=== PATIENT | female | born 1950 | race Caucasian/White ===

== ENCOUNTER 2019-11-08 23:47 | Emergency (ER) | payer OTHER ==
[~2019-11-08] VITALS: Ht 157.5 cm; Wt 66.2 kg
[2019-11-09] MEDS ORDERED: AZITHROMYCIN250 MG (00:11)
[2019-11-09] MEDS ORDERED: MILLIPRED5 MG (00:12)
[2019-11-09] MEDS ORDERED: BENADRYL25 MG PO (02:51)
== END 2019-11-09 02:54 | disposition home or self-care (01) ==
LOC: ER 23:47
DX: L27.1 Localized skin eruption due to drugs and medicaments taken internally (principal); T36.3X5A Adverse effect of macrolides, initial encounter